=== PATIENT | female | born 1985 | race Two or more races ===

== ENCOUNTER 2022-04-11 08:42 | Emergency (ER) | payer MEDICAID, OTHER ==
[~2022-04-11] VITALS: Ht 157.5 cm; Wt 130.0 kg
[2022-04-11] MEDS ORDERED: SODIUM CHLORIDE 0.9% 1,000 ML IV ONE ×2 (09:15)
[2022-04-11] MEDS ORDERED: ONDANSETRON HCL 4 MG/2 ML VIAL IV ONE (09:15)
[2022-04-11 09:24] LABS: Basophils # (auto) 0 10 ^3/uL (0-0.2); Basophils % (auto) 0.5 % (0.0-2.0); Eosinophils # (auto) 0.1 10 ^3/uL (0-0.8); Lymphocytes # (auto) 0.2 10 ^3/uL (0.4-5.4); Nucleated Red Blood Cells % 0.1 %
[2022-04-11 09:26] LABS: Hematocrit 34.2 % (36.0-46.0); Hemoglobin 10.9 g/dL (12.2-16.2); Lymphocytes % (auto) 3.5 % (10.0-50.0); Mean Corpuscular Hemoglobin 23.8 pg (28.0-32.0); Mean Corpuscular Hgb Conc. 31.9 g/dL (32.0-36.0); Mean Corpuscular Volume 74.7 fL (80.0-100.0); Monocytes # (auto) 0.3 10 ^3/uL (0-1.3); Monocytes % (auto) 4.8 % (0.0-12.0); Neutrophils % (auto) 90.2 % (37.0-80.0); Red Blood Cells 4.58 10^6/uL (4.0-5.20); Red Cell Distribution Width 16.5 % (11.8-14.3); White Blood Cell 5.5 10^3/uL (4.4-10.8)
[2022-04-11] MEDS ORDERED: MORPHINE SULFATE 4 MG/ML SYR/VIAL IV ONE (09:30)
[2022-04-11] MEDS ORDERED: cefTRIAXone 1GM/50ML D5W 50 ML IV ONE (09:30)
[2022-04-11 09:47] LABS: Albumin 3.5 g/dL (3.4-5.0); Calcium 8.2 mg/dL (8.5-10.1); Potassium 3.6 mmol/L (3.5-5.1)
[2022-04-11 09:50] LABS: Bilirubin, Total 0.2 mg/dL (0.2-1.0); Total Protein 7.5 g/dL (6.4-8.2)
[2022-04-11 11:11] VITALS: BP 122/56
[2022-04-11] MEDS ORDERED: ONDANSETRON ODT 4 MG TAB PO ONE (11:15)
[2022-04-11 11:17] LABS: BUN/Creatinine Ratio 10.7
[2022-04-11 11:20] LABS: Urine Bacteria NONE SEEN /hpf (None Seen); Urine Blood 3+ /uL (Negative); Urine WBC <1 /hpf (0 - 5)
[2022-04-15] MEDS ORDERED: LORA0.5T20 PO (15:54)
== END 2022-04-11 11:27 | disposition home or self-care (01) ==
LOC: ER 08:42
DX: K52.9 Noninfective gastroenteritis and colitis, unspecified (principal); Z88.8 Allergy status to other drugs, medicaments and biological substances
CPT/HCPCS: 36415; 74176; 80053; 81001; 83690; 84702; 85025; 96365; 96375; 99284; J0696; J2270; J2405; J7030; Q0162

== ENCOUNTER 2022-04-13 10:14 | Emergency (ER) | payer MEDICAID ==
[~2022-04-13] VITALS: Ht 157.5 cm; Wt 59.0 kg
[2022-04-13 11:08] LABS: Basophils # (auto) 0 10 ^3/uL (0-0.2); Eosinophils # (auto) 0 10 ^3/uL (0-0.8); Hemoglobin 11.4 g/dL (12.2-16.2); Lymphocytes # (auto) 1.2 10 ^3/uL (0.4-5.4); Mean Corpuscular Hgb Conc. 31.1 g/dL (32.0-36.0); Monocytes # (auto) 0.3 10 ^3/uL (0-1.3); Neutrophils # (auto) 2.2 10 ^3/uL (1.6-8.6); Nucleated Red Blood Cells % 0.1 %
[2022-04-13 11:10] LABS: Basophils % (auto) 0.7 % (0.0-2.0); Eosinophils % (auto) 0.4 % (0.0-7.0); Hematocrit 36.5 % (36.0-46.0); Lymphocytes % (auto) 32.2 % (10.0-50.0); Mean Corpuscular Hemoglobin 23.2 pg (28.0-32.0); Mean Corpuscular Volume 74.5 fL (80.0-100.0); Monocytes % (auto) 6.9 % (0.0-12.0); Neutrophils % (auto) 59.8 % (37.0-80.0); Red Cell Distribution Width 16.6 % (11.8-14.3); White Blood Cell 3.7 10^3/uL (4.4-10.8)
[2022-04-13 11:20] LABS: BUN/Creatinine Ratio 6.3; Calcium 8.5 mg/dL (8.5-10.1); Potassium 3.5 mmol/L (3.5-5.1)
[2022-04-13] MEDS ORDERED: LORazepam 2MG/ML-1ML VIAL IM ONE (11:30)
[2022-04-13] MEDS ORDERED: KETOROLAC TROMETH 60MG/2ML VIAL IM ONE (11:30)
[2022-04-13] MEDS ORDERED: diphenhdrAMINE HCL 50 MG/1 ML VL IM ONE (11:45)
[2022-04-13] MEDS ORDERED: HYDR50CA PO (12:35)
[2022-04-13] MEDS ORDERED: IBUP600T27 PO (12:35)
[2022-04-13 12:40] VITALS: BP 122/75
[2022-04-15] MEDS ORDERED: LORA0.5T20 PO (15:54)
== END 2022-04-13 12:43 | disposition home or self-care (01) ==
LOC: ER 10:14
DX: F41.1 Generalized anxiety disorder (principal); R94.31 Abnormal electrocardiogram [ECG] [EKG]; Z88.6 Allergy status to analgesic agent
CPT/HCPCS: 36415; 80048; 84484; 85025; 93005; 96372; 99284; J1200; J1885

== ENCOUNTER 2022-05-09 07:36 | Emergency (ER) | payer MEDICAID ==
[~2022-05-09] VITALS: Ht 165.1 cm; Wt 67.0 kg
[~2022-05-09 07:36] MED LIST: HYDR50CA PO; IBUP600T27 PO; LORA0.5T20 PO
[2022-05-09] MEDS ORDERED: SODIUM CHLORIDE 0.9% 1,000 ML IV ONE (08:00)
[2022-05-09] MEDS ORDERED: PANTOPRAZOLE 40 MG/10 ML VIAL INJ IV ONE (08:00)
[2022-05-09 08:51] LABS: Urine Bacteria FEW /hpf (None Seen); Urine Blood 3+ /uL (Negative); Urine Specific Gravity 1.007 (1.001-1.035); Urine WBC <1 /hpf (0 - 5)
[2022-05-09 08:55] LABS: Basophils # (auto) 0 10 ^3/uL (0-0.2); Eosinophils # (auto) 0 10 ^3/uL (0-0.8); Eosinophils % (auto) 0.7 % (0.0-7.0); Lymphocytes # (auto) 1.2 10 ^3/uL (0.4-5.4); Monocytes # (auto) 0.3 10 ^3/uL (0-1.3)
[2022-05-09 08:58] LABS: Basophils % (auto) 0.6 % (0.0-2.0); Hematocrit 33.8 % (36.0-46.0); Hemoglobin 10.7 g/dL (12.2-16.2); Lymphocytes % (auto) 21.6 % (10.0-50.0); Mean Corpuscular Hemoglobin 23.8 pg (28.0-32.0); Mean Corpuscular Hgb Conc. 31.6 g/dL (32.0-36.0); Mean Corpuscular Volume 75.2 fL (80.0-100.0); Neutrophils % (auto) 72.1 % (37.0-80.0); Red Cell Distribution Width 17.1 % (11.8-14.3); White Blood Cell 5.6 10^3/uL (4.4-10.8)
[2022-05-09 09:19] LABS: Potassium 4.1 mmol/L (3.5-5.1)
[2022-05-09 09:25] LABS: Albumin 3.7 g/dL (3.4-5.0); BUN/Creatinine Ratio 11.9; Bilirubin, Total 0.2 mg/dL (0.2-1.0); Calcium 8.6 mg/dL (8.5-10.1); Total Protein 7.5 g/dL (6.4-8.2)
[2022-05-09] MEDS ORDERED: PANT40TA2 PO (11:47)
[2022-05-09 12:18] VITALS: BP 121/64
== END 2022-05-09 12:19 | disposition home or self-care (01) ==
LOC: ER 07:36
DX: K29.70 Gastritis, unspecified, without bleeding (principal); Z32.02 Encounter for pregnancy test, result negative
CPT/HCPCS: 36415; 74176; 80053; 81001; 81025; 82150; 83690; 85025; 96361; 96374; 99284; C9113; J7030

== ENCOUNTER 2022-05-18 06:49 | Emergency (ER) | payer MEDICAID ==
[~2022-05-18] VITALS: Ht 152.4 cm; Wt 68.0 kg
[~2022-05-18 06:49] MED LIST changes: +PANT40TA2 PO
[2022-05-18] MEDS ORDERED: PANTOPRAZOLE 40 MG TAB PO ONE (08:00)
[2022-05-18] MEDS ORDERED: PANT40TA2 PO (08:02)
[2022-05-18 08:12] VITALS: BP 123/71
== END 2022-05-18 08:16 | disposition home or self-care (01) ==
LOC: ER 06:49
DX: K29.70 Gastritis, unspecified, without bleeding (principal); Z76.0 Encounter for issue of repeat prescription

== ENCOUNTER 2022-08-10 20:41 | Emergency (ER) | payer MEDICAID ==
[~2022-08-10] VITALS: Ht 157.5 cm; Wt 66.8 kg
[2022-08-10 22:30] VITALS: BP 149/77
== END 2022-08-11 09:57 | disposition left against medical advice (07) ==
LOC: ER 20:41
DX: R51.9 Headache, unspecified (principal); Z53.21 Procedure and treatment not carried out due to patient leaving prior to being seen by health care provider

== ENCOUNTER 2023-02-25 18:04 | Emergency (ER) | payer MEDICAID ==
[~2023-02-25] VITALS: Ht 157.5 cm; Wt 60.8 kg
[~2023-02-25 18:04] MED LIST changes: +IBUP-1454 PO; -IBUP600T27 PO; +LORA-1121 PO; -LORA0.5T20 PO
[2023-02-25] MEDS ORDERED: KETOROLAC TROMETH 60MG/2ML VIAL IM ONE (22:30)
[2023-02-25] MEDS ORDERED: CYCL-837 PO (22:31)
[2023-02-25] MEDS ORDERED: IBUP-1456 PO (22:31)
[2023-02-25 22:55] VITALS: BP 104/68
== END 2023-02-25 22:55 | disposition home or self-care (01) ==
LOC: ER 18:08
DX: S39.011A Strain of muscle, fascia and tendon of abdomen, initial encounter (principal); M79.604 Pain in right leg; F41.9 Anxiety disorder, unspecified; K21.9 Gastro-esophageal reflux disease without esophagitis; Z88.6 Allergy status to analgesic agent; X58.XXXA Exposure to other specified factors, initial encounter; Y93.89 Activity, other specified; Y92.89 Other specified places as the place of occurrence of the external cause; Y99.8 Other external cause status
CPT/HCPCS: 93971; 96372; 99285; J1885

== ENCOUNTER 2023-09-23 07:40 | Emergency (ER) | payer MEDICAID ==
[~2023-09-23] VITALS: Ht 157.5 cm; Wt 68.3 kg
[~2023-09-23 07:40] MED LIST changes: +CYCL-837 PO; +IBUP-1456 PO
[2023-09-23 08:21] VITALS: BP 127/81; PULSE 106; RESP 18; O2SAT 96
[2023-09-23] MEDS ORDERED: METH4PAK PO ×2 (09:05)
[2023-09-23] MEDS ORDERED: FAMOTIDINE 20 MG TAB PO ONE (09:15)
[2023-09-23] MEDS ORDERED: ACETAMINOPHEN 500 MG TAB PO ONE (09:15)
[2023-09-23] MEDS ORDERED: methylPREDNISolone SOD SUCC 125 MG/2 ML VL IM ONE (09:15)
[2023-09-23 10:02] VITALS: TEMP 99.8
== END 2023-09-23 11:12 | disposition home or self-care (01) ==
LOC: ER 07:40
DX: M54.31 Sciatica, right side (principal); T78.40XA Allergy, unspecified, initial encounter; K21.9 Gastro-esophageal reflux disease without esophagitis; Z88.6 Allergy status to analgesic agent; X58.XXXA Exposure to other specified factors, initial encounter
CPT/HCPCS: 96372; 99283; J2930

== ENCOUNTER 2024-03-01 08:33 | Emergency (ER) | payer MEDICAID ==
[~2024-03-01] VITALS: Ht 157.5 cm; Wt 69.3 kg
[2024-03-01] MEDS: SODIUM CHLORIDE 0.9% 500 ML IV ONE (09:41)
[2024-03-01 11:15] VITALS: BP 103/74; PULSE 77; RESP 16; TEMP 98.9; O2SAT 100
[2024-03-01] MEDS ORDERED: ACET500T58 PO (11:32)
[2024-03-01] MEDS ORDERED: IBUP-1455 PO (11:32)
== END 2024-03-01 11:32 | disposition home or self-care (01) ==
LOC: ER 08:33
DX: B34.9 Viral infection, unspecified (principal); J02.9 Acute pharyngitis, unspecified; K21.9 Gastro-esophageal reflux disease without esophagitis
CPT/HCPCS: 96360; 99283; J7040